=== PATIENT | female | born 1990 | race American Indian/Alaskan Native ===

== ENCOUNTER 2019-02-06 12:50 | Day surgery (SDC) | payer OTHER ==
[~2019-02-06 12:50] MED LIST: NACL 0.9% 1000 ML 1,000 ML IV SCH
--- NOTE | 2019-02-06 15:13 | Anesthesia Day of Surgery ---
Anesthesia Day of Surgery - Day of Surgery Patient Examined: Yes Patient H&P Reviewed: Yes Patient is NPO: Yes
--- NOTE | 2019-02-06 15:13 | Anesthesia Consultation ---
Anesthesia Consult and Med Hx Date of service: 02/06/19 - Airway Anesthetic Teeth Evaluation: Good ROM Head & Neck: Adequate Mental/Hyoid Distance: Adequate Mallampati Class: Class II Intubation Access Assessment: Good - Pulmonary Exam CTA: Yes - Cardiac Exam Cardiac Exam: RRR - Pre-Operative Health Status ASA Pre-Surgery Classification: ASA1 Proposed Anesthetic Plan: MAC
[2019-02-06] MEDS ORDERED: XYLOCAINE MPF 2% ONE (16:00)
[2019-02-06] MEDS ORDERED: DIPRIVAN 10 MG/ML IV ONE (16:01)
--- NOTE | 2019-02-06 16:40 | Discharge Summary ---
Short Stay Discharge Plan Activity: advance as tolerated Weight Bearing Status: Weight Bear as Tolerated Diet: regular Follow up with: PRIMARY CARE, [Primary Care Provider] - 7 Days
--- NOTE | 2019-02-06 16:40 | Operative Report ---
Operative Report Operative Report: Date of procedure: 02/06/2019 Procedure: Esophagogastroduodenoscopy with multiple mucosal biopsies. Attending physician: Werner Ramirez M.D. Conformal Pad Former: Werner Ramirez M.D. Indication: Patient is a 29 -year-old female who presented with a history of recurrent epigastric and diffuse abdominal pain, anorexia, abnormal weight loss. An upper endoscopy is done to assess patient, so that treatment may be directed based on the findings. Consent: Informed consent was obtained after advising the patient and family regarding nature of this procedure, its indications, potential benefits as well as possible complications including but not limited to bleeding perforation and adverse reaction to medication, infection as well as other cardiopulmonary complications. An informed written and verbal consent was then obtained after due opportunity was provided for questions and answers. Monitoring: Patient was monitored continuously with pulse oximetry and electrocardiographic recordings as well as blood pressure recordings. Vital signs remained stable throughout this procedure with no untoward events. Preoperative assessment: Patient was assessed immediately prior to this procedure for capacity to tolerate monitored anesthesia care and moderate sedation as well as general anesthesia. Patient's ASA classification is 2, Mallampati class is 2, Hyomental distance is 3. Instrument: Olympus video endoscope: GIF [id number] Medications: Propofol given intravenously in divided doses. For details please refer to anesthesia records. Description of procedure: Patient was placed in the left lateral decubitus position after achieving sedation, the endoscope was introduced into the esoph kevin under direct vision. It was then advanced beyond the esophagus into the stomach and then beyond the stomach into the second portion of the duodenum. It was subsequently withdrawn with careful inspection of all mucosal surfaces with the following findings. Findings: The esophagus was normal. The Z line was irregular. Patient had multiple gastric antral erosions with surrounding erythema. Gastric antral biopsies were obtained for histopathology. The duodenum was normal to the second portion. The endoscope was removed after the examination Impression: Irregular Z line at 37 cm. Gastric antral erythema with erosions. Plan: Continue treatment with proton pump inhibitors. Follow pathology report and direct additional treatment based on the pathology report.
--- NOTE | 2019-02-06 16:47 | Post Anesthesia Evaluation ---
- Post Anesthesia Evaluation Patient Participated: Yes Airway Patent: Yes Stable Respiratory Function: Yes Nausea/Vomiting: No Temp > 96.8F: Yes Pain Manageable: Yes Adequeate Hydration: Yes Anesthesia Complications: No Block Receding Appropriately: Not Applicable Patient on Ventilator: No
[2019-02-06 17:37] VITALS: BP 124/85
== END 2019-02-06 12:51 | disposition home or self-care (01) ==
LOC: GIO 12:50
PROVIDERS: ATTEND Internal Medicine Gastroenterology
DX: K29.40 Chronic atrophic gastritis without bleeding (principal); K31.89 Other diseases of stomach and duodenum; R63.4 Abnormal weight loss; R63.0 Anorexia
CPT/HCPCS: 43239; 81025; 88305; 88342; J2704; J7030